=== PATIENT | male | born 1950 | race Two or more races ===

== ENCOUNTER 2022-05-02 08:32 | Emergency (ER) | payer OTHER ==
[~2022-05-02] VITALS: Ht 170.2 cm; Wt 69.9 kg
== END 2022-05-02 10:22 | disposition home or self-care (01) ==
LOC: ER 08:32
DX: N39.0 Urinary tract infection, site not specified (principal); R10.2 Pelvic and perineal pain; Z88.8 Allergy status to other drugs, medicaments and biological substances